=== PATIENT | female | born 1995 | race African-American/Black ===

== ENCOUNTER 2016-12-28 13:33 | Emergency (ER) | payer MEDICAID, OTHER ==
[~2016-12-28] VITALS: Ht 154.9 cm; Wt 65.0 kg
[2016-12-28 13:34] VITALS: BP 122/72; PULSE 108; RESP 20; TEMP 98.7; O2SAT 100
[2016-12-28] MEDS ORDERED: BACTOIN EACH NARE (14:25)
--- NOTE | 2016-12-28 14:25 | PD ---
HPI Chief Complaint: Skin Problem Time Seen by Provider: 14:23 Travel History International Travel<30 days: No Contact w/Intl Traveler<30days: No Traveled to known affect area: No History of Present Illness HPI 21 year-old female presents to emergency department for evaluation of an infected nasal piercing. Patient states that she got a couple months ago but noticed an area of swelling around the piercing site. She removes the piercing last evening. Denies any pain. No fever or chills. No other new exposures. She has no other symptoms to report. [facility] Past Medical History Medical History: Denies Significant Hx ?: Not LMP: 12/13/16 Social History Alcohol Use: No Tobacco Use: No Substance Use: No Allergies-Medications (Allergen,Severity, Reaction): Coded Allergies: No Known Allergies (Unverified , 12/28/16) Reported Meds & Prescriptions Reported Meds & Active Scripts Active Bactroban Nasal Oint (Mupirocin Nasal Oint) 2% Oint 1 Applic EACH NARE BID For 5 days. Review of Systems Except as stated in HPI: all other systems reviewed are Neg Physical Exam Narrative GENERAL: Well-nourished, well-developed female patient, ambulatory no acute distress SKIN: Warm and dry. The hole noted in the right near with area of skin growth and mild scabbing. No erythema or edema. HEAD: Normocephalic. EYES: No scleral icterus. No injection or drainage. ENT: Mucosa pink and moist. No erythema or exudates. No uvular edema. No uvular , palatal, or tonsillar deviation. Airway patent. Nasal turbinates appear normal without nasal blood, purulent drainage or septal hematoma. NECK: Supple, trachea midline. No JVD or lymphadenopathy. CARDIOVASCULAR: Regular rate and rhythm without murmurs, gallops, or rubs. RESPIRATORY: Breath sounds equal bilaterally. No accessory muscle use. Data Data Last Documented VS Vital Signs Date Time Temp Pulse Resp B/P Pulse Ox O2 Delivery O2 Flow Rate FiO2 12/28/16 13:34 98.7 108 20 122/72 100 Room Air MDM Medical Decision Making Medical Screen Exam Complete: Yes Emergency Medical Condition: Yes Medical Record Reviewed: Yes Differential Diagnosis Local reaction versus skin overgrowth versus infected piercing site Narrative Course 21 year-old female presents to emergency department for evaluation of a nasal piercing. Patient removed the earring last night. There is skin overgrowth a mild information around the site but there is no abscess. The internal layer is clear. Turbinates are noninflamed. THE patient a prescription for mupirocin ointment to apply to the site. She is counseled on care and agreed any acute worsening of symptoms. Diagnosis Primary Impression: Infected pierced face Referrals: Primary Care Physician Patient Instructions: Acute Wound Care (ED), General Instructions Additional Instructions: Do not pick at the area Follow-up with a primary care provider Ointment is to go on the outside and inside of the nail where the piercing was Return immediately with any acute worsening symptoms Med/Other Pt SpecificInfo: Prescription(s) given Scripts Mupirocin Nasal Oint (Bactroban Nasal Oint)2% Oint1 Applic EACH NARE BID #1 TUBE Ref 0 For 5 days. Prov:Jackie Alexander 12/28/16 Disposition: 01 DISCHARGE HOME Condition: Stable Jackie Alexander Dec 28, 2016 14:25
== END 2016-12-28 14:56 | disposition home or self-care (01) ==
LOC: NEPB 13:33
DX: T81.4XXA Infection following a procedure, initial encounter (principal)
CPT/HCPCS: 99283